=== PATIENT | female | born 1985 | race Caucasian/White ===

== ENCOUNTER 2016-12-01 22:14 | Emergency (ER) | payer BC, OTHER ==
[~2016-12-01] VITALS: Ht 165.1 cm; Wt 73.0 kg
[~2016-12-01 22:14] MED LIST: ABILIFY15 MG PO; BACTRIM,SEPT1 TABLET PO; CEFDINIR300 MG PO; CLEOCIN150 MG PO; CLINDAMYCIN HC150 MG PO; DIAZEPAM2 MG PO; DOXYCYCLINE HY100 MG PO; FLONASE16 G1 NS; MOTRIN800 MG PO; PRENATA CHEWAB1 EACH PO; VICODIN ES 7.51 EAC1 PO; VYVANSE70 MG PO
== END 2016-12-02 00:15 | disposition left against medical advice (07) ==
LOC: EME 22:14
DX: M54.2 Cervicalgia (principal); M54.9 Dorsalgia, unspecified; Z53.21 Procedure and treatment not carried out due to patient leaving prior to being seen by health care provider

== ENCOUNTER 2016-12-11 21:01 | Emergency (ER) | payer OTHER ==
[~2016-12-11] VITALS: Ht 165.1 cm; Wt 72.8 kg
[2016-12-11] MEDS ORDERED: SKELAXIN800 MG PO (22:13)
[2016-12-11 22:32] VITALS: BP 134/88
== END 2016-12-11 22:32 | disposition home or self-care (01) ==
LOC: EME 21:01
DX: S16.1XXA Strain of muscle, fascia and tendon at neck level, initial encounter (principal); V49.40XD Driver injured in collision with unspecified motor vehicles in traffic accident, subsequent encounter; Z88.0 Allergy status to penicillin; F17.200 Nicotine dependence, unspecified, uncomplicated
CPT/HCPCS: 99281; 99283

== ENCOUNTER 2017-04-14 19:23 | Emergency (ER) | payer OTHER ==
[~2017-04-14] VITALS: Ht 165.1 cm; Wt 72.0 kg
[~2017-04-14 19:23] MED LIST changes: +SKELAXIN800 MG PO
[2017-04-14 23:02] LABS: CHLORIDE 104 mEq/L (99-109); POTASSIUM 3.8 mEq/L (3.7-5.4); SODIUM 139 mEq/L (136-147)
[2017-04-14 23:03] LABS: GLUCOSE 73 mg/dL (70-99)
[2017-04-14 23:05] LABS: ANION GAP 9 MEQ/L (2-14)
[2017-04-14 23:07] LABS: GFR ESTIMATE (CALCULATED) > 59 mL/min/
[2017-04-14 23:08] LABS: UREA NITROGEN (BUN) 9 mg/dL (9-23)
[2017-04-14 23:10] LABS: CREATINE KINASE 376 IU/L (1-294)
[2017-04-14] MEDS ORDERED: ULTRACET1 TABLET PO (23:42)
[2017-04-14] MEDS ORDERED: MOTRIN800 MG PO (23:42)
[2017-04-15 00:09] VITALS: BP 132/87
== END 2017-04-15 00:11 | disposition home or self-care (01) ==
LOC: RME 19:23 → EME 19:23 → RME 04-15 00:11
PROVIDERS: Physician Assistant
DX: M79.662 Pain in left lower leg (principal); M79.604 Pain in right leg; R74.8 Abnormal levels of other serum enzymes; R60.0 Localized edema; F17.200 Nicotine dependence, unspecified, uncomplicated
CPT/HCPCS: 80048; 82550; 93970; 99281; 99284; J1885

== ENCOUNTER 2017-10-28 20:59 | Emergency (ER) | payer OTHER ==
[~2017-10-28] VITALS: Ht 165.1 cm; Wt 73.1 kg
[~2017-10-28 20:59] MED LIST changes: +ULTRACET1 TABLET PO
[2017-10-28 21:18] VITALS: BP 130/94
== END 2017-10-28 23:09 | disposition left against medical advice (07) ==
LOC: EME 20:59
DX: R22.31 Localized swelling, mass and lump, right upper limb (principal); Z53.21 Procedure and treatment not carried out due to patient leaving prior to being seen by health care provider

== ENCOUNTER 2017-11-18 10:48 | Emergency (ER) | payer OTHER ==
[~2017-11-18] VITALS: Ht 165.1 cm; Wt 73.8 kg
[2017-11-18 11:30] LABS: BASOPHIL (%) 0.1 % (0-1); EOSINOPHIL (%) 2.2 % (0-5); EOSINOPHIL COUNT 0.2 K/uL (0-0.3); HEMATOCRIT 35.1 % (36.0-46.0); HEMOGLOBIN 11.1 G/DL (11.9-15.5); IMMATURE GRANULOCYTE (%) 0.3 % (0.0-0.7); LYMPHOCYTE (%) 16.5 % (15-42); LYMPHOCYTE COUNT 1.2 K/uL (1.0-2.8); MCH 25.9 PG (29.0-34.0); MCHC 31.6 G/DL (30.0-36.0); MCV 81.8 FL (83-99); MONOCYTE (%) 5.9 % (3-12); MONOCYTE COUNT 0.4 K/uL (0-0.8); NEUTROPHIL COUNT 5.4 K/uL (1.8-6.4); PLATELET COUNT 244 K/uL (156-360); RBC DIS.WIDTH-CV 14.5 % (11.8-14.6); RBC DIS.WIDTH-SD 42.7 % (39-53); RED BLOOD COUNT 4.29 M/uL (3.80-5.20); WHITE BLOOD COUNT 7.3 K/uL (4.1-10.2)
[2017-11-18 11:39] LABS: CHLORIDE 105 mEq/L (99-109); POTASSIUM 4.3 mEq/L (3.7-5.4); SODIUM 138 mEq/L (136-147)
[2017-11-18 11:41] LABS: GLUCOSE 105 mg/dL (70-99)
[2017-11-18 11:45] LABS: CREATININE 0.7 mg/dL (0.6-1.3); GFR ESTIMATE (CALCULATED) > 59 mL/min/
[2017-11-18 11:46] LABS: UREA NITROGEN (BUN) 8 mg/dL (9-23)
[2017-11-18 11:54] LABS: QUANTITATIVE HCG < 4.0 MIU/ML
[2017-11-18] MEDS ORDERED: PROVERA,CYCRIN10 MG PO (13:26)
[2017-11-18 13:35] VITALS: BP 125/86
== END 2017-11-18 13:37 | disposition home or self-care (01) ==
LOC: EME 10:48
PROVIDERS: Emergency Medicine
DX: N93.9 Abnormal uterine and vaginal bleeding, unspecified (principal); Z97.5 Presence of (intrauterine) contraceptive device; F41.9 Anxiety disorder, unspecified; F17.200 Nicotine dependence, unspecified, uncomplicated; Z96.29 Presence of other otological and audiological implants; Z88.0 Allergy status to penicillin
CPT/HCPCS: 80048; 84702; 85025; 99281; 99284